=== PATIENT | female | born 1990 | race Caucasian/White ===

== ENCOUNTER 2018-02-14 11:01 | Emergency (ER) | payer MEDICAID ==
[~2018-02-14] VITALS: Ht 157.5 cm; Wt 84.1 kg
[2018-02-14 11:26] VITALS: Ht 157.5 cm; Wt 84.1 kg
[2018-02-14] MEDS ORDERED: ADIPEX-P37.5 M1 PO (11:29)
[2018-02-14] MEDS ORDERED: CLEOCIN HCL300 MG PO ×2 (12:49→12:53)
[2018-02-14] MEDS ORDERED: VOLTAREN75 MG PO ×2 (12:50→12:53)
[2018-02-14 13:06] VITALS: BP 126/78
== END 2018-02-14 13:10 | disposition home or self-care (01) ==
LOC: D.ER 11:01
DX: K04.7 Periapical abscess without sinus (principal); F17.200 Nicotine dependence, unspecified, uncomplicated

== ENCOUNTER → 2018-03-26 06:29 | Outpatient (CLI) | payer MEDICAID ==
[2018-02-14 11:26] VITALS: BMI 33.9
[~2018-03-26 06:29] MED LIST: ADIPEX-P37.5 M1 PO; CLEOCIN HCL300 MG PO; VOLTAREN75 MG PO
== END | disposition home or self-care (01) ==
LOC: D.MRI 06:29
DX: S93.401D Sprain of unspecified ligament of right ankle, subsequent encounter (principal); X58.XXXA Exposure to other specified factors, initial encounter

== ENCOUNTER 2019-08-20 19:43 | Emergency (ER) | payer MEDICAID ==
[~2019-08-20] VITALS: Ht 157.5 cm; Wt 89.5 kg
[2019-08-20 19:50] VITALS: Ht 157.5 cm; Wt 89.5 kg
[2019-08-20] MEDS ORDERED: PROTONIX40 MG PO (19:53)
[2019-08-20 20:15] LABS: BASOPHILS 0.1 % (0-2); EOSINOPHILS 1.4 % (0-7); HEMOGLOBIN 15.2 g/dL (12-16); IMMATURE GRANULOCYTES 0.2 % (0-5); LYMPHOCYTES 21.3 % (15-50); MCH 30.8 pg (26.0-34.0); MCHC 34.5 g/dL (31.0-37.0); MCV 89.2 fL (80.0-100.0); MEAN PLATELET VOLUME 10.4 fL (7.4-10.4); MONOCYTES 6.9 % (2-11); NEUTROPHILS 70.1 % (40-80); PLATELET COUNT 197 10x3/uL (130-400); RBC 4.93 10x6/uL (4.00-5.40); RDW 12.4 % (11.5-14.5); WBC 10.7 10x3/uL (4.8-10.8)
[2019-08-20 20:21] LABS: CALC OSMOLALITY 279 mosm/kg (275-300); CALCIUM 8.9 mg/dL (8.5-10.1); CARBON DIOXIDE 27.1 mmol/L (21.0-32.0); CHLORIDE - SERUM 105 mmol/L (98-107); CREATININE - SERUM 0.7 mg/dL (0.6-1.3); GLUCOSE 93 mg/dL (74-106); POTASSIUM - SERUM 3.8 mmol/L (3.5-5.1); SODIUM 141 mmol/L (136-145); UREA NITROGEN 11 mg/dL (7-18); eGFR NON AFRICAN AMERICAN > 90 mL/min (90-120)
[2019-08-20 20:22] LABS: APPEARANCE CLEAR (CLEAR); COLOR YELLOW (YELLOW); GLUCOSE NEGATIVE (NEGATIVE); NITRITE NEGATIVE (NEGATIVE); PROTEIN NEGATIVE (NEGATIVE)
[2019-08-20 20:23] LABS: BILIRUBIN NEGATIVE (NEGATIVE); KETONE NEGATIVE (NEGATIVE); UROBILINOGEN NORMAL (NORMAL)
[2019-08-20 20:28] LABS: BACTERIA FEW /hpf (NEGATIVE); EPITHELIAL CELLS 0-5 /hpf (0-5); HCG URINE NEGATIVE (NEGATIVE); RED CELLS - URINE OCC /hpf (0-5); WHITE CELLS - URINE 0-5 /hpf (NEGATIVE)
[2019-08-20 20:31] LABS: ALBUMIN 3.7 g/dL (3.4-5.0); ALKALINE PHOSPHATASE 92 U/L (46-116); ALT (SGPT) 149 U/L (10-68); AMYLASE - SERUM 34 U/L (25-115); BILIRUBIN - TOTAL 0.73 mg/dL (0.2-1.3); LIPASE 124 U/L (73-393); PROTEIN - SERUM 7.2 g/dL (6.4-8.2); TROPONIN-I < 0.017 ng/mL (0.000-0.060)
[2019-08-20] MEDS ORDERED: HYDROCODON-ACE1 EAC7 PO (22:24)
[2019-08-20] MEDS ORDERED: LEVOFLOXACIN500 MG PO (22:24)
[2019-08-20 22:42] VITALS: BP 132/80
== END 2019-08-20 22:43 | disposition home or self-care (01) ==
LOC: D.ER 19:43
PROVIDERS: Emergency Medicine
DX: K80.20 Calculus of gallbladder without cholecystitis without obstruction (principal); R10.84 Generalized abdominal pain; Z72.0 Tobacco use

== ENCOUNTER 2019-09-06 06:40 | Day surgery (SDC) | payer MEDICAID ==
[~2019-09-06] VITALS: Ht 157.5 cm; Wt 88.5 kg
[~2019-09-06 06:40] MED LIST changes: +HYDROCODON-ACE1 EAC7 PO; +LEVOFLOXACIN500 MG PO; +PROTONIX40 MG PO
[2019-09-06 07:32] LABS: HCG SERUM NEGATIVE (NEGATIVE)
[2019-09-06] MEDS ORDERED: ALBUTEROL SULF8.5 GM INH (07:42)
[2019-09-06 07:43] VITALS: BP 116/59; Ht 157.5 cm; Wt 88.5 kg
[2019-09-06 08:07] LABS: HEMOGLOBIN 14.3 g/dL (12-16); MCH 30.3 pg (26.0-34.0); MEAN PLATELET VOLUME 10.2 fL (7.4-10.4); RBC 4.72 10x6/uL (4.00-5.40); RDW 12.5 % (11.5-14.5); WBC 7.3 10x3/uL (4.8-10.8)
[2019-09-06] MEDS ORDERED: HYDROCODON-ACE1 EAC7 PO (10:48)
--- NOTE | 2019-09-06 13:11 | NUR ---
DC TEACHING COMPLETE NO QUEST OR CONCERNS PRESENT INTO WHEELCHAIR W/O ANY PROB OUT TO OUTPATIENT PAVILION EXIT BY [facility]NE BANG W/C.
== END 2019-09-06 13:12 | disposition home or self-care (01) ==
LOC: D.OPS 06:40 → D.PAN 09:00 → D.OPS 13:12
PROVIDERS: Anesthesiology; ATTEND Surgery
DX: K81.1 Chronic cholecystitis (principal); J45.909 Unspecified asthma, uncomplicated; F17.200 Nicotine dependence, unspecified, uncomplicated